=== PATIENT | male | born 1990 | race Caucasian/White ===

== ENCOUNTER → 2017-07-15 | Outpatient (CLI) | payer OTHER ==
--- NOTE | 2017-07-16 07:49 | RAD ---
EXAM DESCRIPTION: Fingers,Left CLINICAL HISTORY: 27 years Male, PN IN FINGER-LEFT, RING FINGER COMPARISON: None. TECHNIQUE: Left fourth finger three x-ray views FINDINGS: Tiny ossific density at the volar aspect of the base of the middle phalanx of the fourth digit is seen which could be tiny avulsion injury. There is some overlying soft tissue swelling. No dislocation. Normal bony mineralization. IMPRESSION: Tiny avulsion injury of the base of the middle phalanx of the fourth digit of the left hand. Electronically signed by: Jose De Jesus Handy MD 07/16/2017 7:48 AM CDT
== END ==
LOC: RAD 11:05
DX: M79.645 Pain in left finger(s) (principal)